=== PATIENT | female | born 1995 | race Two or more races ===

== ENCOUNTER 2023-05-17 17:49 | Emergency (ER) | payer MEDICAID ==
[~2023-05-17] VITALS: Ht 167.6 cm; Wt 61.7 kg
[2023-05-17 18:27] VITALS: TEMP 98.2
[2023-05-17] MEDS ORDERED: PROCHLORPERAZINE EDISYLATE 10 MG/2 ML VIAL ONE (20:52)
[2023-05-17] MEDS: IV NS 0.9% 1,000 ML BAG IV ONE (20:54)
[2023-05-17] MEDS: PROCHLORPERAZINE EDISYLATE 10 MG/2 ML VIAL IVP ONE (20:54)
[2023-05-17 21:11] LABS: BASOPHILS % (AUTO) 0.3 % (0.0-2.0); EOSINOPHILS # (AUTO) 0.2 K/uL (0.0-0.7); EOSINOPHILS % (AUTO) 2.1 % (0.0-6.0); HEMATOCRIT 39 % (33-45); LYMPHOCYTES # (AUTO) 2.5 K/uL (0.8-4.8); LYMPHOCYTES % (AUTO) 29.9 % (20.0-44.0); MEAN CORPUSCULAR HEMOGLOBIN 31 PG (26.0-33.0); MEAN CORPUSCULAR HGB CONC 34 g/dl (31.0-36.0); MEAN CORPUSCULAR VOLUME 91 fL (82-100); MONOCYTES # (AUTO) 0.6 K/uL (0.1-1.30); MONOCYTES % (AUTO) 7.5 % (2.0-12.0); NEUTROPHILS # (AUTO) 4.9 K/uL (1.8-8.9); NEUTROPHILS % (AUTO) 60.2 % (43.0-81.0); PLATELET COUNT (AUTO) 225 K/uL (150-450); RED BLOOD CELL COUNT(AUTO) 4.23 MIL/uL (4.0-5.2); RED CELL DISTRIBUTION WIDTH 13.6 % (11.5-15.0); WHITE BLOOD COUNT (AUTO) 8.2 K/uL (4.3-11.0)
[2023-05-17 21:22] LABS: CALCIUM, SERUM 9.3 mg/dL (8.5-10.1); CREATININE 0.8 mg/dL (0.6-1.3)
[2023-05-17 21:24] LABS: PREGNANCY TEST URINE QUAL NEGATIVE (NEGATIVE)
[2023-05-17] MEDS ORDERED: IOHEXOL-350 100 ML VIAL IV ONE (21:26)
[2023-05-17] MEDS ORDERED: IV NS 0.9% 250 ML IV ONE (21:27)
[2023-05-17 23:26] VITALS: BP 110/60; O2SAT 98
== END 2023-05-17 22:55 | disposition home or self-care (01) ==
LOC: ER 17:53
DX: R42 Dizziness and giddiness (principal)
CPT/HCPCS: 99285; 70498; 96374; 96361; 70496; 85025; 80048; 83735; 84703; 36415; J0780; J7030; J7050; Q9967